=== PATIENT | male | born 1970 | race Caucasian/White ===

== ENCOUNTER 2018-04-01 16:58 | Emergency (ER) | payer OTHER ==
[~2018-04-01] VITALS: Ht 170.2 cm; Wt 75.0 kg
[2018-04-01 17:08] VITALS: Ht 170.2 cm; Wt 75.0 kg
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
[2018-04-01 17:45] VITALS: BP 148/96; PULSE 58; TEMP 36.7; O2SAT 100
== END 2018-04-01 17:46 | disposition home or self-care (01) ==
LOC: EDBD 16:58 → C.EDD 17:01
DX: S01.111A Laceration without foreign body of right eyelid and periocular area, initial encounter (principal); V42.6XXA Car passenger injured in collision with two- or three-wheeled motor vehicle in traffic accident, initial encounter